=== PATIENT | female | born 1995 | race Hispanic/Latino ===

== ENCOUNTER 2017-06-08 10:17 | Inpatient (IN) | payer MEDICAID ==
[2017-06-08] MEDS ORDERED: ePHEDrine SULFATE IV PRN ×2 (10:21→15:53)
[2017-06-08] MEDS ORDERED: MINERAL OIL PO PRN (10:21)
[2017-06-08] MEDS ORDERED: XYLOCAINE 2% INFILTRATI ONE (10:21)
[2017-06-08] MEDS ORDERED: POLYCILLIN/NS 2 GM/100 ML 2 GM/100 ML BAG IV ONE (10:21)
[2017-06-08] MEDS ORDERED: STADOL IV PRN (10:21)
[2017-06-08] MEDS ORDERED: SUBLIMAZE IV PRN (10:21)
[2017-06-08] MEDS ORDERED: BRETHINE SUB-Q PRN (10:21)
--- NOTE | 2017-06-08 10:21 | History and Physical Report ---
History of Present Illness Date of examination: 06/08/17 Date of admission: 06/08/17 10:17 Chief complaint: " my water broke" History of present illness: EDC Calculations LMP: 06/12/2017 Past History : 1 Term Births: 0 Premature Births: 0 Living Children: 0 Para: 0 Mult. Births: 0 Prev : 0 Prev. attempt? 0 Aborta: 0 Elect. Ab: 0 Spont. 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 Past Surgical History Abnormal PAP: negative Uterine Anomaly: negative Social Hx: Patient is single unemployed Infection History Hx of STD: none HIV Risk Eval: low risk Hepatitis B Risk Eval: low risk Genetic History Congenital Heart Defect: Mom: no Dad: no Jenelle Disease: Mom: no Dad: no Thalassemia Mom: no Dad: no Neural Tube Defect Mom: no Dad: no Down's Syndrome Mom: no Dad: no Ramesh-Sachs Mom: no Dad: no Sickle Cell Disease/Trait Mom: no Dad: no Hemophilia Mom: no Dad: no Muscular Dystrophy Mom: no Dad: no Cystic Fibrosis Mom: no Dad: no [place] Chorea Mom: no Dad: no Mental Retardation Mom: no Dad: no Fragile X Mom: no Dad: no Other Genetic/Chromosomal Disorder Mom: no Dad: no Child w/other defect Mom: no Dad: no Enviromental Exposures Xray Exposure: no Medication, drug, or alcohol use since LMP: no Chemical/Other Exposure: no Exposure to Cat Liter: no Hx of Parvovirus (Fifth Disease): no Active Medications (reviewed today): None Current Allergies (reviewed today): No known allergies Past History Past Medical History: other (see HPI) Past Surgical History: other (see HPI) - Obstetrical History Expected Date of Delivery: 06/12/17 Actual Gestation: 39 Week(s) 3 Day(s) : 1 Para: 0 Number of Pregnancies: 0 Spontaneous Abortions: 0 Induced : 0 Number of Living Children: 0 Medications and Allergies Allergies Allergy/AdvReac Type Severity Reaction Status Date / Time No Known Allergies Allergy Unverified 06/08/17 10:29 Home Medications Medication Instructions Recorded Confirmed Last Taken Type Vit-Fe Fumar-FA [ 1 tab PO QDAY 06/08/17 06/08/17 06/07/17 09: 00 History Vitamin] 1 Review of Systems All systems: negative - Physical Exam Breasts: Positive: normal Cardiovascular: Regular rate Lungs: Positive: Clear to auscultation, Normal air movement Abdomen: Positive: normal appearance, soft Genitourinary (Female): Positive: normal external genitalia, normal perenium Vulva: both: normal Vagina: Positive: normal moisture Uterus: Positive: normal size, normal contour Anus/Rectum: Positive: normal perianal skin Extremities: Positive: normal Deep Tendon Reflex Grade: Normal +2 - Obstetrical FHR: auscultation normal Uterine Contraction Monitor Mode: External Results Result Diagrams: 06/08/17 10:55 All other labs normal. Assessment and Plan 22 y/o 2 39+3 weeks arrived with Gross SROM clear fluid this morning. GBS +, complicated by diet controlled GDM and polyhydramnios noted at last [facility] visit. Last EFW 7#13oz on 05/27/17. Admission orders in EMR. Dr. Lagos aware of admission. - Patient Problems (1) 39 weeks gestation of Current Visit: Yes Status: Acute (2) GBS (group B Streptococcus carrier), +RV culture, currently Current Visit: Yes Status: Acute Plan to address problem: ampicllin q4h until delivery (3) GDM (gestational diabetes mellitus) Current Visit: Yes Status: Acute Qualifiers: Gestational diabetes mellitus control: diet-controlled Trimester: third trimester Qualified Code(s): O24.410 - Gestational diabetes mellitus in , diet controlled (4) SROM (spontaneous rupture of membranes) Current Visit: Yes Status: Acute
[2017-06-08] MEDS ORDERED: PITOCin/NS 30 UNIT/500ML 30 UNITS/500 ML BAG IV SCH (11:00)
[2017-06-08] MEDS ORDERED: PITOCin/NS 20 UNIT/1000ML DRIP 20 UNITS/1,000 ML BAG IV SCH (11:00)
[2017-06-08 11:13] LABS: Hematocrit 37.3 % (30.3-42.9); Mean Corpuscular HGB Conc 35 % (30-34); Mean Corpuscular Hemoglobin 31 pg (28-32); Mean Corpuscular Volume 88 fl (79-97); Platelet Count 259 K/mm3 (140-440); Red Blood Count 4.26 M/mm3 (3.65-5.03); Red Cell Distribution Width 13.5 % (13.2-15.2)
[2017-06-08] MEDS: NORMOSOL-R PH 7.4 1,000 ML IV SCH ×3 (12:00→20:36)
[2017-06-08] MEDS: AMPICILLIN/NS 1 GM/50 ML 1 GM/50 ML BAG IV SCH ×2 (15:33→21:22)
[2017-06-08] MEDS ORDERED: NARCAN 2 MG/2 ML IV PRN (15:53)
--- NOTE | 2017-06-08 15:54 | Anesthesia Consultation ---
Anesthesia Consult and Med Hx - Airway Anesthetic Teeth Evaluation: Good ROM Head & Neck: Adequate Mental/Hyoid Distance: Adequate Mallampati Class: Class II Intubation Access Assessment: Good - Pulmonary Exam CTA: Yes - Cardiac Exam Cardiac Exam: RRR - Pre-Operative Health Status ASA Pre-Surgery Classification: ASA2 Proposed Anesthetic Plan: Epidural, Spinal - Pulmonary Hx Asthma: No - Cardiovascular System Hx Hypertension: No - Central Nervous System Hx Seizures: No Hx Psychiatric Problems: No - Endocrine Hx Renal Disease: No Hx Hypothyroidism: No Hx Hyperthyroidism: No - Hematic Hx Anemia: No Hx Sickle Cell Disease: No - Other Systems Hx Alcohol Use: No
[2017-06-08] MEDS ORDERED: fentaNYL-BUPIV 2 MCG/ML-0.125% 200 MCG/100 ML BAG EPIDURAL SCH (16:00)
[2017-06-08] MEDS ORDERED: ZOFRAN ONE (20:52)
--- NOTE | 2017-06-08 21:03 | Progress Note ---
Assessment and Plan patient laboring with good change, no /0, vertex. anterior portion of cervix swollen presumably from patient bearing down with ctx. advised to try not to push as it could cause additional swelling. She is also c/o pain with ctx - will have anesthesia redose if possible. FHT cat 1. Anticpate . - Patient Problems (1) 39 weeks gestation of Current Visit: Yes Status: Acute (2) GBS (group B Streptococcus carrier), +RV culture, currently Current Visit: Yes Status: Acute (3) GDM (gestational diabetes mellitus) Current Visit: Yes Status: Acute Qualifiers: Gestational diabetes mellitus control: diet-controlled Trimester: third trimester Qualified Code(s): O24.410 - Gestational diabetes mellitus in , diet controlled (4) SROM (spontaneous rupture of membranes) Current Visit: Yes Status: Acute Subjective - Subjective Date of service: 06/08/17 Principal diagnosis: IUP @ 39+3, SROM, GDM - diet controlled Interval history: EDC Calculations LMP: 06/12/2017 Past History : 1 Term Births: 0 Premature Births: 0 Living Children: 0 Para: 0 Mult. Births: 0 Prev : 0 Prev. attempt? 0 Aborta: 0 Elect. Ab: 0 Spont. 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 Past Surgical History Abnormal PAP: negative Uterine Anomaly: negative Social Hx: Patient is single unemployed Infection History Hx of STD: none HIV Risk Eval: low risk Hepatitis B Risk Eval: low risk Genetic History Congenital Heart Defect: Mom: no Dad: no Jenelle Disease: Mom: no Dad: no Thalassemia Mom: no Dad: no Neural Tube Defect Mom: no Dad: no Down's Syndrome Mom: no Dad: no Ramesh-Sachs Mom: no Dad: no Sickle Cell Disease/Trait Mom: no Dad: no Hemophilia Mom: no Dad: no Muscular Dystrophy Mom: no Dad: no Cystic Fibrosis Mom: no Dad: no [place] Chorea Mom: no Dad: no Mental Retardation Mom: no Dad: no Fragile X Mom: no Dad: no Other Genetic/Chromosomal Disorder Mom: no Dad: no Child w/other defect Mom: no Dad: no Enviromental Exposures Xray Exposure: no Medication, drug, or alcohol use since LMP: no Chemical/Other Exposure: no Exposure to Cat Liter: no Hx of Parvovirus (Fifth Disease): no Active Medications (reviewed today): None Current Allergies (reviewed today): No known allergies Patient reports: new complaints (rectal pressure with ctx) Objective - Vital Signs Vital Signs: Vital Signs - 12hr 06/08/17 06/08/17 06/08/17 10:43 10:44 10:49 Temperature Pulse Rate 121 H 117 H 122 H Respiratory Rate Blood Pressure 115/82 O2 Sat by Pulse 97 96 Oximetry 06/08/17 06/08/17 06/08/17 10:54 11:43 12:08 Temperature 97.4 F L Pulse Rate 101 H 109 H Respiratory 18 Rate Blood Pressure 111/75 111/78 O2 Sat by Pulse Oximetry 06/08/17 06/08/17 06/08/17 12:38 13:08 13:38 Temperature Pulse Rate 100 H 93 H 96 H Respiratory Rate Blood Pressure 111/70 111/71 118/73 O2 Sat by Pulse Oximetry 06/08/17 06/08/17 06/08/17 14:08 14:39 15:10 Temperature Pulse Rate 96 H 112 H 80 Respiratory Rate Blood Pressure 125/76 126/73 129/79 O2 Sat by Pulse Oximetry 06/08/17 06/08/17 06/08/17 15:39 16:08 16:30 Temperature Pulse Rate 77 103 H 93 H Respiratory Rate Blood Pressure 119/82 120/74 120/65 O2 Sat by Pulse 98 Oximetry 06/08/17 06/08/17 06/08/17 16:32 16:34 16:35 Temperature Pulse Rate 90 89 89 Respiratory Rate Blood Pressure 111/61 107/59 O2 Sat by Pulse 0 L 97 Oximetry 06/08/17 06/08/17 06/08/17 16:36 16:37 16:39 Temperature Pulse Rate 96 H 95 H 99 H Respiratory Rate Blood Pressure 106/59 102/57 110/63 O2 Sat by Pulse Oximetry 06/08/17 06/08/17 06/08/17 16:40 16:42 16:43 Temperature Pulse Rate 93 H 90 98 H Respiratory Rate Blood Pressure 113/62 112/64 O2 Sat by Pulse 98 Oximetry 06/08/17 06/08/17 06/08/17 16:45 16:48 16:49 Temperature Pulse Rate 107 H 88 93 H Respiratory Rate Blood Pressure 113/63 105/63 O2 Sat by Pulse 98 Oximetry 06/08/17 06/08/17 06/08/17 16:50 16:51 16:53 Temperature Pulse Rate 96 H 86 114 H Respiratory Rate Blood Pressure 105/64 105/57 O2 Sat by Pulse 98 Oximetry 06/08/17 06/08/17 06/08/17 16:55 16:56 16:57 Temperature Pulse Rate 83 90 97 H Respiratory Rate Blood Pressure 107/62 103/57 O2 Sat by Pulse 98 Oximetry 06/08/17 06/08/17 06/08/17 16:59 17:00 17:01 Temperature Pulse Rate 93 H 84 93 H Respiratory Rate Blood Pressure 105/59 107/60 O2 Sat by Pulse 100 Oximetry 06/08/17 06/08/1718 17:03 17:05 17:06 Temperature Pulse Rate 104 H 85 90 Respiratory Rate Blood Pressure 99/59 97/58 O2 Sat by Pulse 100 Oximetry 06/08/17 06/08/1718 17:08 17:09 17:10 Temperature Pulse Rate 96 H 88 102 H Respiratory Rate Blood Pressure 100/62 99/59 O2 Sat by Pulse 99 Oximetry 06/08/17 06/08/17 06/08/17 17:12 17:14 17:15 Temperature Pulse Rate 117 H 87 94 H Respiratory Rate Blood Pressure 99/64 101/68 O2 Sat by Pulse 100 Oximetry 06/08/17 06/08/1718 17:16 17:18 17:20 Temperature Pulse Rate 94 H 98 H 95 H Respiratory Rate Blood Pressure 97/61 94/67 105/68 O2 Sat by Pulse 98 Oximetry 06/08/17 06/08/1718 17:24 17:25 17:30 Temperature Pulse Rate 75 85 85 Respiratory Rate Blood Pressure 101/56 O2 Sat by Pulse 98 98 Oximetry 18 06/08/18 18 17:35 17:40 17:45 Temperature Pulse Rate 82 79 88 Respiratory Rate Blood Pressure 103/59 O2 Sat by Pulse 100 100 99 Oximetry 18 06/08/18 18 17:50 17:53 17:55 Temperature Pulse Rate 85 87 86 Respiratory Rate Blood Pressure 102/65 O2 Sat by Pulse 99 99 Oximetry 06/08/1706/08/18 18 18:00 18:05 18:08 Temperature Pulse Rate 86 87 93 H Respiratory Rate Blood Pressure 102/68 O2 Sat by Pulse 98 99 Oximetry 06/08/1706/08/18 06/08/17 18:10 18:15 18:20 Temperature Pulse Rate 88 86 89 Respiratory Rate Blood Pressure O2 Sat by Pulse 98 98 98 Oximetry 06/08/1718 18 18:24 18:25 18:30 Temperature Pulse Rate 88 102 H 92 H Respiratory Rate Blood Pressure 112/69 O2 Sat by Pulse 98 97 Oximetry 06/08/17 06/08/17 06/08/17 18:35 18:39 18:40 Temperature Pulse Rate 82 100 H 92 H Respiratory Rate Blood Pressure 119/52 O2 Sat by Pulse 99 98 Oximetry 06/08/1706/08/18 18 18:45 18:50 18:53 Temperature Pulse Rate 91 H 90 93 H Respiratory Rate Blood Pressure 87/49 O2 Sat by Pulse 98 98 Oximetry 06/08/1718 18 18:55 19:00 19:05 Temperature Pulse Rate 93 H 91 H 104 H Respiratory Rate Blood Pressure O2 Sat by Pulse 99 96 98 Oximetry 06/08/1706/08/18 18 19:08 19:10 19:15 Temperature Pulse Rate 98 H 102 H 106 H Respiratory Rate Blood Pressure 95/52 O2 Sat by Pulse 98 99 Oximetry 18 06/08/18 06/08/18 19:20 19:25 19:27 Temperature Pulse Rate 98 H 99 H 84 Respiratory Rate Blood Pressure 118/70 O2 Sat by Pulse 99 99 Oximetry 06/08/1706/08/18 18 19:32 19:37 19:39 Temperature Pulse Rate 90 95 H 91 H Respiratory Rate Blood Pressure 105/59 O2 Sat by Pulse 98 98 Oximetry 06/08/17 06/08/17 06/08/17 19:42 19:47 19:52 Temperature Pulse Rate 107 H 97 H 95 H Respiratory Rate Blood Pressure O2 Sat by Pulse 99 96 97 Oximetry 06/08/17 06/08/17 06/08/17 19:55 19:57 20:02 Temperature Pulse Rate 94 H 96 H 92 H Respiratory Rate Blood Pressure 119/56 O2 Sat by Pulse 96 96 Oximetry 06/08/17 06/08/17 06/08/17 20:07 20:09 20:12 Temperature Pulse Rate 96 H 95 H 107 H Respiratory Rate Blood Pressure 106/54 O2 Sat by Pulse 97 95 Oximetry 06/08/17 06/08/17 06/08/17 20:17 20:22 20:23 Temperature Pulse Rate 105 H 101 H 101 H Respiratory Rate Blood Pressure 117/60 O2 Sat by Pulse 95 96 Oximetry 06/08/17 06/08/17 06/08/17 20:27 20:32 20:37 Temperature Pulse Rate 105 H 115 H 111 H Respiratory Rate Blood Pressure O2 Sat by Pulse 97 97 96 Oximetry 06/08/17 06/08/17 06/08/17 20:39 20:42 20:47 Temperature Pulse Rate 111 H 132 H 122 H Respiratory Rate Blood Pressure 120/56 O2 Sat by Pulse 97 97 Oximetry 06/08/17 06/08/17 06/08/17 20:52 20:54 20:57 Temperature Pulse Rate 112 H 126 H 120 H Respiratory Rate Blood Pressure 119/57 O2 Sat by Pulse 96 96 Oximetry - Exam Breasts: normal Cardiovascular: Regular rate Lungs: Clear to auscultation, Normal air movement Abdomen: Present: normal appearance, soft Vulva: both: normal Uterus: Present: normal FHR: auscultation normal, category 1 Uterine Contraction Monitor Mode: External Cervical Dilatation: 7 (minimal cervical swelling on anterior portion of cervix) Cervical Effacement Percentage: 90 station: 0 Uterine Contraction Frequency (min): 2-3 Uterine Contraction Duration: 70 Uterine Contraction Pattern: Regular Uterine Tone Measurement Phase: Contraction Uterine Contraction Intensity: Strong/Firm Extremities: normal Deep Tendon Reflex Grade: Normal +2 - Labs Labs: Abnormal Labs 06/08/17 10:55 WBC 13.7 H MCHC 35 H Laboratory Results - last 24 hr 06/08/17 06/08/17 06/08/17 10:55 10:55 10:55 WBC 13.7 H RBC 4.26 Hgb 13.0 Hct 37.3 MCV 88 MCH 31 MCHC 35 H RDW 13.5 Plt Count 259 POC Glucose RPR Nonreactive Blood Type O POSITIVE Antibody Screen Negative 06/08/17 13:48 WBC RBC Hgb Hct MCV MCH MCHC RDW Plt Count POC Glucose 77 RPR Blood Type Antibody Screen
[2017-06-08] MEDS ORDERED: XYLOCAINE 2%/ EPI 1:200,000 INFILTRATI ONE (21:15)
--- NOTE | 2017-06-09 00:29 | Procedure Note ---
OB Delivery Note - Delivery Date of Delivery: 06/09/17 ( Male) Help Desk Support Specialist: OMAR STARKEY Estimated blood loss: other (400) - Vaginal Delivery presentation: vertex Delivery position: OA (shoulders del transverse, OA) Intrapartum events: none Delivery induction: none Delivery augmentation: rupture of membranes, pitocin Delivery monitor: external FHT, external uterine Route of delivery: Delivery placenta: spontaneous Delivery cord: true knot, 3 umbilical vessels Episiotomy: midline Delivery laceration: 2nd degree Delivery repair: vicryl Anesthesia: epidural Delivery comments: Male infant del direct OA, shoulders del transverse over midline episiotomy. Infant placed skin to skin on mother's abd, 3 vessel cord clamped and cut. True knot noted in cord. Cord blood collected. Placenta del intact and complete. 2nd degree lac repaired along with left vaginal side wall, Left labial laceration hemostatic - not repaired. EBL 400. Infant's weight 9#1, apgars 8/9. mother and infant remain LDR stable. - Infant A at 1 minute: 8 at 5 minutes: 9 Infant Gender: Male (9#1)
[2017-06-09] MEDS ORDERED: BENADRYL PO PRN (03:39)
[2017-06-09] MEDS ORDERED: TYLENOL PO PRN (03:39)
[2017-06-09] MEDS ORDERED: MILK OF MAGNESIA PO PRN (03:39)
[2017-06-09] MEDS ORDERED: TUCKS PAD TP PRN (03:39)
[2017-06-09] MEDS ORDERED: SODIUM CHLORIDE FLUSH SYRINGE 10 ML IV PRN (03:39)
[2017-06-09] MEDS ORDERED: LANSINOH TP PRN (03:39)
[2017-06-09] MEDS ORDERED: PITOCin/NS 20 UNIT/1000ML DRIP 20 UNITS/1,000 ML BAG IV SCH (03:39)
[2017-06-09] MEDS ORDERED: ZOFRAN IV PRN (03:39)
[2017-06-09] MEDS ORDERED: PHENERGAN PO PRN (03:39)
[2017-06-09] MEDS ORDERED: DERMOPLAST TP PRN (03:39)
[2017-06-09] MEDS ORDERED: DULCOLAX PR PRN (03:39)
[2017-06-09] MEDS: NORCO 5/325 PO PRN ×2 (05:50→18:56)
[2017-06-09] MEDS: MOTRIN PO SCH ×3 (05:51→23:23)
[2017-06-09] MEDS: COLACE PO SCH ×2 (13:32→21:06)
[2017-06-09] MEDS: FEOSOL PO SCH ×2 (13:33→21:06)
[2017-06-09] MEDS: PRENATAL VITAMIN PO SCH (13:33)
[2017-06-09 14:28] LABS: Hematocrit 29.9 % (30.3-42.9); Hemoglobin 10.1 gm/dl (10.1-14.3)
[2017-06-10] MEDS: NORCO 5/325 PO PRN (04:01)
[2017-06-10] MEDS: MOTRIN PO SCH ×2 (05:37→12:48)
[2017-06-10] MEDS ORDERED: BOOSTRIX IM ONE (06:00)
--- NOTE | 2017-06-10 06:06 | Discharge Summary ---
Providers - Providers Date of Admission: 06/08/17 10:17 Date of discharge: 06/10/17 (pt agrees with d/c ) Attending physician: CHRISTIAN LEE 06/09/17 03:39 Consult to Chief Clinical Dietitian [CONS] Routine Reason For Exam: assistance with , SNS Primary care physician: CHRISTIAN LEE Hospitalization Reason for admission: active labor Delivery: Episiotomy: midline Laceration: 2nd degree Incision: normal, dry, intact Other procedures: none complications: none Discharge diagnosis: IUP at term delivered baby: male Hospital course: uncomplicated vaginal delivery Pt A&O X 3 No c/o voiced VSS FF below umb Lochia small Perineum, mod swelling, intact. H&H 01/20 drop r/t blood loss from delivery Doing well s/p vag delivery P: d/c today with instructions RX for Motrin provided. Pt declines BC @ this time. Make circ appt for 1 week EMLA cream Condition at discharge: Good Disposition: DC-01 TO HOME OR SELFCARE - Discharge Diagnoses (1) (spontaneous vaginal delivery) Status: Acute Comment: RTO 4 weeks PP care Plan - Discharge Medications Prescriptions: Ibuprofen [Motrin 800 MG tab] 800 mg PO Q8HR PRN #30 tablet PRN Reason: Pain Lidocain2.5%/Prilocai2.5% [Emla] 5 gm TP ONCE PRN #1 tube PRN Reason: Pain - Provider Discharge Summary Activity: routine, no sex for 6 weeks, no heavy lifting 4 weeks, no strenuous exercise Diet: routine Instructions: routine Additional instructions: [] Smoking cessation referral if applicable(refer to patient education folder for contact #) [] Refer to [facility] Booklet Call your doctor immediately for: * Fever > 100.5 * Heavy vaginal bleeding ( >1 pad per hour) * Severe persistent headache * Shortness of breath * Reddened, hot, painful area to leg or breast * Drainage or odor from incision. * Keep incision clean and dry at all times and follow doctor's instructions regarding bathing/showering - Follow up plan Follow up: CHRISTIAN LEE MD [Primary Care Provider] - 7 Days (Congratulations! Please call [phone] to schedule your visit in 4weeks and your son's circumcision appointment in 1 week. Bring the EMLA cream with you to his visit. Do NOT use at home. Take medications as prescribed. Call with concerns.)
[2017-06-10] MEDS: PRENATAL VITAMIN PO SCH (10:42)
[2017-06-10] MEDS: COLACE PO SCH (10:42)
[2017-06-10] MEDS: FEOSOL PO SCH (10:42)
[2017-06-10 14:49] VITALS: BP 101/60
== END 2017-06-10 16:00 | disposition home or self-care (01) | DRG 775 ==
LOC: LD 10:17 → OB 06-09 03:27
PROVIDERS: ADMIT Obstetrics & Gynecology; ATTEND Obstetrics & Gynecology
PROC: 0KQM0ZZ Repair Perineum Muscle, Open Approach (ICD-10-PCS; principal; 2017-06-09)
PROC: 10E0XZZ Delivery of Products of Conception, External Approach (ICD-10-PCS; 2017-06-09)
PROC: 0W8NXZZ Division of Female Perineum, External Approach (ICD-10-PCS; 2017-06-09)
PROC: 3E0R3BZ Introduction of Anesthetic Agent into Spinal Canal, Percutaneous Approach (ICD-10-PCS; 2017-06-09)
PROC: 00HU33Z Insertion of Infusion Device into Spinal Canal, Percutaneous Approach (ICD-10-PCS; 2017-06-09)
DX: O24.420 Gestational diabetes mellitus in childbirth, diet controlled (principal); O70.1 Second degree perineal laceration during delivery; O99.824 Streptococcus B carrier state complicating childbirth; Z3A.39 39 weeks gestation of pregnancy; Z37.0 Single live birth; O40.3XX0 Polyhydramnios, third trimester, not applicable or unspecified; O69.2XX0 Labor and delivery complicated by other cord entanglement, with compression, not applicable or unspecified
CPT/HCPCS: 36415; 82962; 85014; 85018; 85027; 86592; 86850; 86900; 86901; 88307; 99211; G0463; J0290; J0595; J2405; J2590; J3010